=== PATIENT | female | born 1985 | race African-American/Black ===

== ENCOUNTER 2017-08-24 16:34 | Emergency (ER) | payer OTHER ==
[~2017-08-24] VITALS: Ht 170.2 cm; Wt 70.0 kg
[~2017-08-24 16:34] MED LIST: BACT800T5 PO; CYCL5TAB PO; NAPR-576 PO
[2017-08-24 17:10] VITALS: BP 115/70; PULSE 102; RESP 18; TEMP 98.6; O2SAT 100
[2017-08-24 17:11] VITALS: BP 120/78; PULSE 108; RESP 20; TEMP 97.9; O2SAT 99
--- NOTE | 2017-08-24 17:18 | RADRPT ---
EXAM DATE/TIME: 08/24/2017 16:55 [place] COMPARISON: No previous studies available for comparison. INDICATIONS : Knee pain. MEDICAL HISTORY : None. SURGICAL HISTORY : None. ENCOUNTER: Initial ACUITY: 1 day PAIN SCORE: 9/10 LOCATION: Right knee FINDINGS: Four views of the right knee demonstrate no fracture or dislocation. No joint effusion is present. Th ere is no significant arthropathy and mineralization is within normal limits. No soft tissue abnormal ity or radiopaque foreign body is identified. CONCLUSION: No abnormality is identified. Justyn Martini MD on August 24, 2017 at 17:15 Board Certified Radiologist. This report was verified electronically.
[2017-08-24] MEDS ORDERED: IBUP1TAB7 PO (17:25)
[2017-08-24] MEDS ORDERED: NORC5TAB PO (17:25)
--- NOTE | 2017-08-24 17:26 | PD ---
HPI Chief Complaint: Injury Time Seen by Provider: 17:14 Travel History International Travel<30 days: No Contact w/Intl Traveler<30days: No Traveled to known affect area: No History of Present Illness HPI 32-year-old female presents to the emergency Department via EMS with complaint of right knee pain and swelling after she turned, twisted her knee and her kneecap popped out of place today while doing laundry. Pain is to the lateral, medial, anterior, and posterior aspects. Denies paresthesias, loss of sensation to the affected extremity. Reports decreased range of motion to the knee. Has not been ambulatory on the affected extremity since the incident. Rates pain 9/10. Has not taken any medications or tried any treatments to alleviate her symptoms. Does have ice packs in place at this time. Describes the pain as throbbing and aching. Worse with movement. No known allergies. Primary care provider is [facility]. Denies significant past medical history. Denies current medications. Has no medical complaints. No other modifying factors or associated signs and symptoms. PFSH Past Medical History Bipolar Disorder: Yes Cardiovascular Problems: Yes Diminished Hearing: No Hypertension: Yes (with ) Psychiatric: Yes Migraines: Yes ?: Not LMP: 08/24/17 Tubal Ligation: Yes Past Surgical History Section: Yes (x 4) Social History Alcohol Use: Yes (social) Tobacco Use: Yes (5 CIGS A DAY) Substance Use: No Allergies-Medications (Allergen,Severity, Reaction): Coded Allergies: No Known Allergies (Unverified , 02/11/16) Reported Meds & Prescriptions Reported Meds & Active Scripts Active Ibuprofen 800 Mg Tab 800 Mg PO Q6HR PRN [place] (Hydrocodone-Acetaminophen) 5 Mg-325 Mg Tab 1 Tab PO Q6H PRN Bactrim DS (Sulfamethoxazole-Trimethoprim DS) 1 Tab Tab 1 Tab PO Q12 10 Days Naproxen 500 Mg Tab 500 Mg PO Q12HR PRN Flexeril (Cyclobenzaprine HCl) 5 Mg Tab 5 Mg PO Q8HR PRN Review of Systems Except as stated in HPI: all other systems reviewed are Neg Physical Exam Narrative GENERAL: Well-nourished, well-developed black female patient, in no acute distress; afebrile, nontoxic-appearing SKIN: Warm and dry. HEAD: Atraumatic. Normocephalic. EYES: Pupils equal and round. No scleral icterus. No injection or drainage. ENT: Mucosa pink and moist. Airway patent. NECK: Trachea midline. CARDIOVASCULAR: Regular rate. RESPIRATORY: No accessory muscle use. GASTROINTESTINAL: Flat. MUSCULOSKELETAL: Right knee mildly edematous, nonerythematous, and without ecchymosis; unable to assess ROM secondary to pain and patient guarding; point tenderness to the lateral, medial, anterior,and posterior aspect; joint stable with negative drawer test; no obvious deformity. Right Lower extremity is supple and non-tense with 2+ pedal pulse and sensory intact and without erythema or edema. Unable to assess ambulatory status. NEUROLOGICAL: Awake and alert. Oriented 3. No obvious cranial nerve deficits. Motor grossly within normal limits. Normal speech. PSYCHIATRIC: Appropriate mood and affect; insight and judgment normal. Data Data Last Documented VS Vital Signs Date Time Temp Pulse Resp B/P (MAP) Pulse Ox O2 Delivery O2 Flow Rate FiO2 08/24/17 17:14 101 16 100 Room Air 08/24/17 17:11 97.9 120/78 (92) Orders Orders Knee, Complete (4vws) (08/24/17 ) Ed Discharge Order (08/24/17 17:26) Canvas Knee Splint (Cks) (08/24/17 ) Crutches (08/24/17 17:26) Acetamin-Hydrocod 325-5 Mg ([place] 5-325 (08/24/17 17:30) MDM Medical Decision Making Medical Screen Exam Complete: Yes Emergency Medical Condition: Yes Medical Record Reviewed: Yes Differential Diagnosis Knee strain, knee fracture, knee injury Narrative Course 32-year-old female arrives via EMS with right knee injury. Right knee x-ray ordered in triage. 1722: Right knee x-ray concludes: No abnormality is identified. Canvas knee splint and crutches provided for support. Tramadol prescribed for home. Instructed patient to follow up with orthopedics. Instructed patient to follow up with primary care provider. Patient verbalizes understanding and agreement with treatment plan. Patient is medically cleared and stable for discharge. Discussed reasons to return to the emergency department. Patient agrees with treatment plan. The patients vital signs are stable and the patient is stable for outpatient follow-up and treatment. Patient discharged home, stable and in no acute distress. Diagnosis Primary Impression: Right knee injury Qualified Codes: S89.91XA - Unspecified injury of right lower leg, initial encounter Referrals: [facility] Orthopaedic Surgeon Primary Care Physician Patient Instructions: General Instructions, Knee Sprain (ED) Additional Instructions: Tylenol or ibuprofen as needed and as directed to reduce pain and inflammation Rest, ice, compress, and elevate extremity to decrease pain and inflammation Canvas Knee brace for support Crutches for support Avoid aggravating activity; increase activity as tolerated Follow-up with primary care provider Follow-up with orthopedics Return to the emergency department immediately with worsening symptoms Med/Other Pt SpecificInfo: Prescription(s) given Scripts Ibuprofen (Ibuprofen) 800 Mg Tab 800 MG PO Q6HR Y for PAIN, #30 TAB 0 Refills Prov: Kandy Bermudez 08/24/17 Hydrocodone-Acetaminophen ([place]) 5 Mg-325 Mg Tab 1 TAB PO Q6H Y for PAIN, #10 TAB 0 Refills Prov: Kandy Bermudez 08/24/17 Disposition: 01 DISCHARGE HOME Condition: Stable Kandy Bermudez Aug 24, 2017 17:26
[2017-08-24] MEDS ORDERED: ACETAMINOPHEN/HYDROcodone 325 MG/5 MG TAB PO ONE (17:30)
== END 2017-08-24 18:21 | disposition home or self-care (01) ==
LOC: NEPD 16:34
DX: S89.91XA Unspecified injury of right lower leg, initial encounter (principal); Z72.0 Tobacco use; Z72.89 Other problems related to lifestyle; Z86.59 Personal history of other mental and behavioral disorders; Z86.69 Personal history of other diseases of the nervous system and sense organs; X50.1XXA Overexertion from prolonged static or awkward postures, initial encounter; Y93.E2 Activity, laundry
CPT/HCPCS: 73564; 99283; E0113; L1830